=== PATIENT | male | born 1955 | race Caucasian/White ===

== ENCOUNTER 2019-01-08 15:57 | Outpatient (CLI) | payer OTHER ==
--- NOTE | 2019-01-08 16:52 | Diagnostic Imaging Report ---
Indication: Left knee swelling and pain Technique: 2 views of the left knee Comparison: None Findings: No suprapatellar effusion. No acute fractures. No dislocations. The joint spaces are preserved. There are extensive arterial calcifications noted Impression: No acute process
--- NOTE | 2019-01-10 09:34 | Diagnostic Imaging Report ---
APPROVED REPORT CPT Code: 96270 Present Symptoms Comments: LEFT LEG PAIN. LEFT LEG: Venous imaging reveals a patent deep venous system. There is no evidence of thrombus within the femoral, popliteal or tibial segments. The greater saphenous vein is also within normal limits. Doppler indicates normal spontaneous flow within these segments. Edema and fluid filled structure noted adjacent to popliteal area measuring (3.2cm x 1.3cm x 2.1cm) in the left.
== END 2019-01-08 17:57 | disposition home or self-care (01) ==
LOC: RAD 15:57
DX: R22.42 Localized swelling, mass and lump, left lower limb (principal); M25.562 Pain in left knee
CPT/HCPCS: 93971